=== PATIENT | male | born 1995 | race Caucasian/White ===

== ENCOUNTER → 2020-04-11 16:40 | Outpatient (CLI) | payer OTHER, SELFPAY ==
[2020-04-11 17:01] LABS: Basophils % 0.3 % (0.1-2.0); Eosinophils # 0.1 K/mm3 (0.0-0.4); Eosinophils % 0.8 % (0.1-12.0); Hematocrit 48.8 % (42.0-52.0); Hemoglobin 17.1 g/dL (14.1-18.0); Lymphocytes # 2.3 K/mm3 (0.7-4.5); Lymphocytes % 34.1 % (10-50); Mean Corpuscular Volume 85.7 fl (80-94); Mean Platelet Volume 8.3 fl (7.4-10.4); Monocytes # 0.5 K/mm3 (0.1-1.0); Monocytes % 6.8 % (1.7-9.3); Neutrophils # 3.9 K/mm3 (1.8-7.8); Platelet Count 236 K/mm3 (142-424); Red Blood Count 5.69 M/mm3 (4.60-6.20); Red Cell Distribution Width 13.1 % (11.5-17.5); White Blood Count 6.7 K/mm3 (4.8-10.8)
[2020-04-11 17:27] LABS: Alanine Aminotransferase 36 U/L (12-78); Albumin Level 4.9 g/dl (3.5-5.0); Albumin/Globulin Ratio 1.7 (1.1-1.8); Alkaline Phosphatase 105 U/L (38-126); Anion Gap 10.9 mEq/L (5-15); Aspartate Amino Transferase 38 U/L (17-59); Bilirubin,Total 0.7 mg/dl (0.2-1.3); Blood Urea Nitrogen 8 mg/dl (9-20); Calcium 10.5 mg/dl (8.4-10.2); Carbon Dioxide 30 mmol/L (22.0-30.0); Chloride 100 mmol/L (98-107); Chol/HDL Ratio 2.9 (1-3.5); Cholesterol 214 mg/dl (140-200); Estimated Glomerular Filt Rate 117 ml/min (>60); GFR (African American) 141 ML/MIN (>60); Globulin 2.9 g/dL (1.3-3.2); Glucose 106 mg/dl (74-100); HDL Cholesterol 75 mg/dl (40-60); Potassium 4.9 mmoL/L (3.5-5.1); Sodium 136 mmol/L (136-145); Total Protein,Serum 7.8 g/dl (6.3-8.2); Triglycerides 130 mg/dl (30-150); VLDL Cholesterol 26 mg/dL (0-40)
[2020-04-11 17:39] LABS: Direct LDL Cholesterol 118.63 mg/dL (100-129)
[2020-04-11 17:45] LABS: T4 (Thyroxine) 8.5 ug/dl (5.53-11.0)
[2020-04-11 17:58] LABS: Thyroid Stimulating Hormone 2.24 uIU/mL (0.465-4.68)
[2020-04-17 01:39] LABS: 1,25 Dihydroxy Vitamin D 35 pg/mL (.); 1,25-Dihydroxy, Vitamin D-2 <10 pg/mL (.); 1,25-Dihydroxy, Vitamin D-3 35 pg/mL (.)
== END ==
PROVIDERS: Visit Provider Nurse Practitioner Family
DX: I10 Essential (primary) hypertension (principal)
CPT/HCPCS: 80053; 80061; 82652; 84436; 84443; 85025

== ENCOUNTER → 2020-04-16 08:04 | Outpatient (CLI) | payer OTHER, SELFPAY ==
--- NOTE | 2020-04-16 08:05 | CA_ITS ---
APPROVED REPORT Ergonomist: Syeda Lombardo RVT Study Quality: Excellent Indications: Uncontrolled HTN Risk Factors Hypertension Renal Artery Doppler Origin (R) 203.9/ cm/sec Proximal (R) 197.1/ cm/sec Mid (R) 147.6/ cm/sec Distal (R) 95.5/ cm/sec Renal Aorta Ratio (R) 1.34 Segmental A. (R) 70.4/25.1 cm/sec RI: 0.64 Segmental A. Sup (R) 70.4/25.1 cm/sec Segmental A. Mid (R) 51.5/23.9 cm/sec Segmental A. Inf (R) 42.7/20.1 cm/sec Origin (L) 121.7/ cm/sec Proximal (L) 130.2/ cm/sec Mid (L) 134.7/ cm/sec Distal (L) 102.4/ cm/sec Renal Aorta Ratio (L) 0.88 Segmental A. (L) 75.5/23.6 cm/sec RI: 0.68 Segmental A. Sup (L) 75.5/23.6 cm/sec Segmental A. Mid (L) 50.0/32.6 cm/sec Segmental A. Inf (L) 31.0/10.7 cm/sec Renal Measurements Kidney Size (R) 12.0x7.0 cm Cortical Thickness (R) 1.1 cm Kidney Size (L) 12.2x7.5 cm Cortical Thickness (L) 1.3 cm Findings Study suggests less than 60% stenosis of the right renal artery. Study suggests no evidence of stenosis of the left renal artery. Conclusion Study suggests less than 60% stenosis of the right renal artery. Study suggests no evidence of stenosis of the left renal artery. Electronically signed by : Ernie Rae MD 04/17/2020 15:04:18
--- NOTE | 2020-04-16 08:05 | CA_ITS ---
APPROVED REPORT Exam: Exercise Treadmill Technologist: Saray Lloyd Ht: 5 ft 9 in Wt: 223 lbs BSA: 2.16 m2 HR: 83 bpm BP: 138/86 mmHg Indications: Shortness of Breath, Hypertension Medical History Medications: Lisinopril,,,,, Stress Test Details Test: Terrell HR Resting HR: 92 bpm Max Heart Rate (APMHR): 194 bpm Max HR Achieved: 167 bpm Target HR (85% APMHR): 164 bpm % of APMHR: 86 Recovery HR: 100 bpm BP Resting BP: 138.0/86.0 mmHg Max BP: 196.0/98.0 mmHg Recovery BP: 150.0/96.0 mmHg ECG Clinical Exercise duration: 07:03 min Highest Stage Achieved: Exercise capacity: 10.1 METs Stress ECG Conclusion Resting ECG: Normal sinus rhythm, right axis deviation. Patient exercised 7:03 on Terrell Protocol. Test stopped due to shortness of air, fatigue. Symptoms: No chest pain. Arrhythmias/Ectopy: None ST-T Changes: Normal ST response to exercise. Conclusion: Normal GXT. Poor exercise tolerance for age. GXT only (no imaging) Electronically signed by : Sg Farr, 04/17/2020 10:48:30
--- NOTE | 2020-04-16 08:05 | CA_ITS ---
APPROVED REPORT EXAM: Comprehensive 2D, Doppler, and color-flow Echocardiogram Lactation Consultant: Syeda Lombardo RVT Ht: 5 ft 9 in Wt: 223lbs BSA: 2.16 BP: 149/96 mmHg Indications: SOA,HTN,PALPS,CROSS 2D Dimensions LVOT 2.15 cm (M/F) 1.5-2.5 M-Mode Dimensions RVDd 3.08 cm (0.9-2.6) LVDd 4.62 cm (3.5-5.7) LVDs 2.75 cm (3.5-5.7) IVSd 1.14 cm (0.6-1.1) PWd 0.84 cm (0.6-1.1) EF (Teich) 71.20% FS 40.50% EDV (Teich) 98.30 mL ESV (Teich) 28.30 mL LV Diastology E/A Ratio 1.32 Mitral Valve MV A Velocity 47.00 (40-130 cm/s) Left Ventricle Left atrium is normal size, left ventricle is normal size, there is no concentric left ventricular hypertrophy, visually estimated ejection fraction 55% with no regional wall motion abnormality, diastolic parameters are within normal range. Right Ventricle Right atrium and right ventricle are normal size and contractility. Aortic Valve Aortic valve is normal, there is no aortic stenosis aortic insufficiency. Mitral Valve Valve is grossly normal, there is trace mitral regurgitation. Tricuspid Valve Tricuspid valve is grossly normal. There is no tricuspid regurgitation. Pulmonic Valve Pulmonic valve is poorly visualized. Great Vessels Aortic root is normal size. Pericardium No significant pericardial effusion noted. Conclusion 1. Normal left ventricular size, preserved left ventricular systolic function, visually estimated ejection fraction 55% with no regional wall motion abnormality, diastolic parameters are within normal range. 2. Trace mitral and tricuspid regurgitation. 3. No significant pericardial effusion noted. Electronically signed by : Sg Farr, 04/17/2020 13:03:30
== END ==
PROVIDERS: PCP Nurse Practitioner Family; Visit Provider Urology
DX: R00.2 Palpitations (principal); R06.00 Dyspnea, unspecified; I10 Essential (primary) hypertension
CPT/HCPCS: 93017; 93306; 93976

== ENCOUNTER 2021-01-02 09:17 | Emergency (ER) | payer OTHER, SELFPAY ==
--- NOTE | 2021-01-02 09:16 | ECG_ITS ---
APPROVED REPORT Exam: Resting ECG HR:68 bpm ECG Measurements Heart Rate 68 AXES WV 146 P 29 QRSd 100 QRS 47 QT 366 T 23 QTc 389 Conclusion Normal sinus rhythm Possible Left atrial enlargement Borderline ECG Electronically signed by : Sarbjit Garcia, 01/03/2021 16:34:06
[2021-01-02 09:17] VITALS: BP 129/86; PULSE 86; RESP 24; TEMP 36.6; O2SAT 97; BMI 34.0
--- NOTE | 2021-01-02 09:22 | HMH.EDGENADL ---
ED Disposition Clinical Impression: Esophagitis, Odynophagia Disposition: Home, Self-Care Condition on Discharge: Good Instructions: DI for Gastroesophageal Reflux Disease (GERD), DI for Atypical Chest Pain, DI for Esophagitis Additional Instructions: Protonix as prescribed. Aloe up with your primary care provider, call for appointment. Additional instructions for CHEST PAIN: See your physician as soon as possible for further evaluation. Return immediately if worsening chest pain, vomiting, shortness of breath, fever, coughing of blood. Prescriptions: Pantoprazole Sodium [Protonix 40mg tablet] 40 mg PO DAILY #15 tab Transmission Status: Received by [facility] Referrals: Astrid Pro APRN [Primary Care Provider] - - Critical Care Critical Care Time: No Attestation: On , the high probability of a clinically significant, sudden or life threatening deterioration of the following system(s) required my full and direct attention, intervention and personal management. The time I documented below is in addition to time spent performing reported procedures but includes the following listed in this critical care notation. Medical Decision Making - Carter Inquiry Pt receiving controlled substance: No Vital Signs: 01/02/21 09:17 01/02/21 09:30 01/02/21 10:50 Temperature 97.8 F 98.4 F Temperature Source Oral Oral Pulse Rate 87 Pulse Rate [Left Radial] 86 80 Respiratory Rate 24 18 16 Blood Pressure 112/65 Blood Pressure [Right Arm] 129/86 115/78 Blood Pressure Mean [Right Arm] 100 90 Blood Pressure Source [Right Arm] Automatic Cuff Blood Pressure Position [Right Arm] Sitting 02 Sat by Pulse Oximetry 97 98 Oxygen Delivery Method Room Air Room Air - Lab Data Lab Results 01/02/21 09:23: Troponin I < 0.01 01/02/21 09:23: WBC 6.9, RBC 5.00, Hgb 14.9, Hct 43.5, MCV 86.9, MCH 29.7, MCHC 34.2, RDW 13.2, Plt Count 228, MPV 7.9, Neut % (Auto) 55.7, Lymph % (Auto) 36.2, Sargent % (Auto) 7.1, Eos % (Auto) 0.6, Baso % (Auto) 0.3, Neut # (Auto) 3.8, Lymph # (Auto) 2.5, Sargent # (Auto) 0.5, Eos # (Auto) 0.0, Baso # (Auto) 0.0 01/02/21 09:23: Sodium 140, Potassium 3.7, Chloride 106, Carbon Dioxide 29, Anion Gap 8.7, BUN 12, Creatinine 0.80, Estimated Creat Clear 206, Estimated GFR 117, Est GFR ( Amer) 141, Glucose 74, Calcium 9.4 Result diagrams: 01/02/21 09:23 01/02/21 09:23 Orders (Tests/Meds): ED MEDICATIONS Discontinued Medications Generic Name Dose Route Start Last Admin Trade Name Freq PRN Reason Stop Dose Admin Belladonna Alkaloids 60 ml 01/02/21 09:26 01/02/21 09:36 Gi Cocktail 60ml Udc PO 01/02/21 09:27 60 ml ONCE ONE Administration Famotidine 20 mg 01/02/21 09:26 01/02/21 09:36 Famotidine 20mg/2ml Vial IV 01/02/21 09:27 20 mg ONCE ONE Administration Metoclopramide HCl 10 mg 01/02/21 09:26 01/02/21 09:36 Metoclopramide Hcl 10mg/2ml Vial IVP 01/02/21 09:27 10 mg ONCE ONE Administration Sodium Chloride 8 ml 01/02/21 09:26 01/02/21 09:37 Sodium Chloride 0.9% 10ml Vial IV 02/01/21 09:25 8 ml NEEDED PRN Administration dilute pepcid - Radiology Data #1 Image(s): Chest Image Reviewed: Yes I reviewed the patient's radiology image Preliminary Findings: Normal/NAD - ECG Data Tracing #1 EKG interpreted by Jose Barker MD: Rhythm: sinus Rate: 68 [place]: normal Ectopy: none Conduction: normal ST Segment Changes: none T Wave Changes: none Q Waves: none No evidence of acute ischemia or injury - STEPHANIE Score for Non-Stemi Age of Patient: <30 years old Heart Rate: 70-89 bpm Systolic Blood Pressure: 120-139 mmhg Serum Creatinine: 0.80-1.19 mg/dl CHF [place] Class: I-No CHF Other Risk Factors: None Non-Stemi Risk Score: 50 General Adult HPI - General Stated complaint: chest pain Time Seen by Provider: 01/02/21 09:46 - History of Present Illness HPI narrative: 3-day history o
--- NOTE | 2021-01-02 09:25 | XR_ITS ---
PROCEDURE: XR CHEST 2V CLINICAL HISTORY: chest pain COMPARISON: No exams were available for comparison FINDINGS: The cardiomediastinal silhouette and pulmonary vascularity are within normal limits. The lungs are clear without infiltrates, suspicious nodules, or pleural effusions. No acute bony abnormalities. IMPRESSION: No acute findings. Dictated by: Ernie Rae MD 01/02/2021 10:47 Ernie Rae MD in OV 01/02/2021 10:47
[2021-01-02 09:30] VITALS: BP 115/78; PULSE 80; RESP 18; O2SAT 98
[2021-01-02 09:52] LABS: Basophils % 0.3 % (0.1-2.0); Eosinophils % 0.6 % (0.1-12.0); Hematocrit 43.5 % (42.0-52.0); Hemoglobin 14.9 g/dL (14.1-18.0); Lymphocytes # 2.5 K/mm3 (0.7-4.5); Lymphocytes % 36.2 % (10-50); Mean Corpuscular HGB Conc 34.2 g/dL (31.8-35.4); Mean Corpuscular Hemoglobin 29.7 pg (27.0-31.2); Mean Corpuscular Volume 86.9 fl (80-94); Mean Platelet Volume 7.9 fl (7.4-10.4); Monocytes # 0.5 K/mm3 (0.1-1.0); Monocytes % 7.1 % (1.7-9.3); Neutrophils # 3.8 K/mm3 (1.8-7.8); Neutrophils % 55.7 % (37.0-80.0); Platelet Count 228 K/mm3 (142-424); Red Cell Distribution Width 13.2 % (11.5-17.5); White Blood Count 6.9 K/mm3 (4.8-10.8)
[2021-01-02 10:03] LABS: Chloride 106 mmol/L (98-107); Potassium 3.7 mmoL/L (3.5-5.1); Sodium 140 mmol/L (136-145)
[2021-01-02 10:06] LABS: Anion Gap 8.7 mEq/L (5-15); Blood Urea Nitrogen 12 mg/dl (9-20); Calcium 9.4 mg/dl (8.4-10.2); Carbon Dioxide 29 mmol/L (22.0-30.0); Creatinine Clearance Estimated 206 mL/min (50-200); Estimated Glomerular Filt Rate 117 ml/min (>60); GFR (African American) 141 ML/MIN (>60); Glucose 74 mg/dl (74-100)
[2021-01-02 10:21] LABS: Troponin I < 0.01 ng/ml (0.00-0.034)
[2021-01-02 10:50] VITALS: BP 112/65; PULSE 87; RESP 16; TEMP 36.9; O2SAT 98
== END 2021-01-02 10:52 | disposition home or self-care (01) ==
PROVIDERS: Emergency Provider Emergency Medicine; PCP Nurse Practitioner Family
DX: K21.00 Gastro-esophageal reflux disease with esophagitis, without bleeding (principal); R13.10 Dysphagia, unspecified; I10 Essential (primary) hypertension; K21.9 Gastro-esophageal reflux disease without esophagitis
CPT/HCPCS: 71046; 80048; 84484; 85025; 93005; 96374; 96375; 99283

== ENCOUNTER → 2021-01-12 10:28 | Outpatient (POV) | payer OTHER, SELFPAY | PROVIDERS: Visit Provider Nurse Practitioner Family | DX: Z00.00 Encounter for general adult medical examination without abnormal findings (principal) ==

== ENCOUNTER → 2021-01-24 11:36 | Outpatient (CLI) | payer OTHER, SELFPAY ==
[2021-01-24 14:08] LABS: Coronavirus 19 IgG Antibody Negative (Negative); Coronavirus 19 IgM Antibody Negative (Negative)
== END ==
PROVIDERS: Visit Provider Internal Medicine Gastroenterology
DX: Z01.818 Encounter for other preprocedural examination (principal); Z20.822 Contact with and (suspected) exposure to COVID-19; Z13.810 Encounter for screening for upper gastrointestinal disorder
CPT/HCPCS: 36415; 86328

== ENCOUNTER 2021-01-26 10:28 | Day surgery (SDC) | payer BC, OTHER, SELFPAY ==
[2021-01-20 13:20] VITALS: BMI 34.8
[2021-01-26 10:38] VITALS: BP 124/84; PULSE 89; RESP 20; TEMP 36.8; O2SAT 99
[2021-01-26 11:12] VITALS: O2SAT 99
--- NOTE | 2021-01-26 11:22 | HMH.ANESCL ---
[facility] Anesthesia Checklist - Patient Identification Patient Identification: Arm Band - Structural Data Admitted From: Home Planned Operative Procedure/s: egd Consent for Planned Operative Procedure(s) Verified: Yes Verified Documents: Surgical Consent, History and Physical - NPO Status Verified Time NPO: 00:00 - Additional verifications Anesthesia Reactions: No - Airway Assessment C-Spine Mobility Assessed: Yes (mp2) TMJ Mobility Assessed: Yes Dentition: Good Dentition - Neurological Assessment Level of Consciousness: Awake, Alert - Anesthesia Plan Anesthesia Risk discussed: Yes Anesthesia Plan: Verified ASA Class: II Anesthesia Type: MAC [facility] History I have reviewed the patient's past medical history: Yes Medical History: Reports:: Hypertension Denies:: Cancer, Diabetes Mellitus Type 1, Diabetes Mellitus Type 2, Internal Pacemaker, MRSA, Seizures *Have you ever received a pneumonia vaccine?: No *Have you received a flu vaccine this season?: No Anesthesia experience/problems:: nac Laterality Cases: Bilateral: Tonsillectomy Other Surgeries: Yes: Other. No: Pacemaker Amputation: No Fractures: No - *Social History Last grade of school completed: Some college Smoking Status: Never smoker Alcohol Intake: never Alcohol Intake Frequency:: other Substance Use Type: denies use *Occupational Status:: employed Housing: house Household Members: family *Travel in the last 8 weeks: None Family Hx:: Diabetes, Hypertension
--- NOTE | 2021-01-26 11:28 | HMH.PROC ---
[facility] Procedure Note Procedure Note:: Upper Endoscopy Procedure Report: Esophagogastroduodenoscopy with cold biopsies Endoscopost: Jeff Johnson II, MD Referring Physician: JOHN Maya Date of Procedure: January 26, 2021 Equipment: Olympus GIF 190 standard upper endoscope Sedation: MAC sedation Indications: Mr. Travis is a 26-year-old gentleman with noncardiac chest pain/esophageal chest pain. He has had an extensive cardiac evaluation which has been unremarkable. He was getting midsternal chest pain radiating into the back that occurred after eating or drinking. He did go to the emergency department last month and received a GI cocktail which relieved his discomfort. He does take Mylanta occasionally. He does report some epigastric abdominal discomfort/dyspepsia and persistent postprandial belching. He also has bloating and some early satiety. He does report regular bowel function but has had incomplete bowel evacuation/incomplete defecation. The patient was taking both pantoprazole and Nexium. His grandfather had rectal cancer diagnosed at the age of 54. Procedure: Prior to the procedure, a history and physical exam was performed, and patient's medications and allergies were reviewed. The risks, benefits and alternatives of the sedation and procedure were discussed with the patient. All questions were answered and informed consent was obtained. The patient was brought to the procedure room. Patient identification and proposed procedure were verified by the physician and the nurse. The patient was placed in a left lateral decubitus position and the scope was passed under direct vision. Throughout the procedure, the patient's blood pressure, pulse, and oxygen saturations were monitored continuously. The upper GI endoscopy was accomplished without difficulty. The patient tolerated the procedure well. Findings: The scope was passed directly into the upper esophagus and advanced to the third portion of the duodenum. The post bulbar duodenum and duodenal bulb were normal with normal mucosa and conniventes. The scope was withdrawn through a normal duodenal bulb and pylorus into the stomach. There was evidence of linear reactive gastropathy with bile reflux. The remainder of the antrum, body and fundus of the stomach were grossly normal. Upon retroflexion there was no hiatal hernia. 2 biopsies were taken in the antrum and along the lesser curvature for histology to rule out gastritis and/or H pylori. The scope was then withdrawn into the esophagus. There was a serrated Z-line. Biopsies were taken at the squamocolumnar junction. There was no evidence of reflux esophagitis or Schatzki's ring. There were tertiary contractions and evidence of moderate esophageal dysmotility. The remainder of the esophageal mucosa was normal. Impression: 1. Nonerosive GERD with moderate esophageal dysmotility 2. Linear reactive gastropathy with bile reflux Plan: The patient does have functional dyspepsia and functional reflux with esophageal dyskinesia/dysmotility. I will follow-up the biopsies. We will discuss additional treatment options which should include a fiber bowel regimen on a daily maintenance basis and promotility therapy. We will discuss dietary measures as well.
[2021-01-26 11:30] VITALS: BP 109/76; PULSE 79; RESP 16; TEMP 36.4; O2SAT 95
[2021-01-26 11:40] VITALS: BP 108/70; PULSE 72; RESP 18; O2SAT 96
[2021-01-26 11:50] VITALS: BP 110/69; PULSE 72; RESP 18; O2SAT 98
== END 2021-01-26 12:00 | disposition home or self-care (01) ==
LOC: OUTP 10:30
PROVIDERS: PCP Nurse Practitioner Family; Visit Provider Internal Medicine Gastroenterology
PROC: 0DJ08ZZ Inspection of Upper Intestinal Tract, Via Natural or Artificial Opening Endoscopic (ICD-10-PCS; CPT 43235; principal; 2021-01-26 12:00)
DX: K21.9 Gastro-esophageal reflux disease without esophagitis (principal); K22.4 Dyskinesia of esophagus; K31.9 Disease of stomach and duodenum, unspecified; I10 Essential (primary) hypertension; Z83.3 Family history of diabetes mellitus; Z82.49 Family history of ischemic heart disease and other diseases of the circulatory system; Z79.899 Other long term (current) drug therapy; Z88.1 Allergy status to other antibiotic agents
CPT/HCPCS: 43239

== ENCOUNTER 2021-05-09 14:07 | Emergency (ER) | payer BC, OTHER, SELFPAY ==
[2021-05-09 14:20] VITALS: BP 156/87; PULSE 89; RESP 16; TEMP 37.1; O2SAT 100; BMI 34.9
--- NOTE | 2021-05-09 14:32 | HMH.EDUTC ---
[facility] [place] Disposition Clinical Impression: Common cold Disposition: Home, Self-Care Condition on Discharge: Good Instructions: How to Avoid a Cold or Flu, Common Cold (Alternative Therapy), Common Cold Additional Instructions: No sign of a bacterial infection. Likely viral. Viruses can take 7-14 days to run their course. Nasal saline and bulb syringe or nose Lisha to remove nasal drainage to help with nasal congestion. Hard to eat, drink, sleep with nasal congestion so important to keep this cleaned out. Monitor temp. Tylenol or Motrin as needed for pain or fever Encourage fluids, water, Gatorade, Powerade, Pedialyte if /toddler/child Warm salt water gargles Warm fluids Sore throat lozenges Sleep elevated Humidifier/vaporizer Follow-up immediately for new or worsening symptoms or no noticeable improvement over the next 48-72 hours. Prescriptions: Brompheniramine/Pseudoephed/Dm [Bromfed Dm Cough Syrup] 5 ml PO Q46H PRN 14 Days #100 ml PRN Reason: Cough Transmission Status: Pending to [facility] Referrals: Astrid Pro APRN [Primary Care Provider] - Time of Disposition: 14:46 Medical Decision Making - Carter Inquiry Pt receiving controlled substance: No Vital Signs: 05/09/21 14:20 Temperature 98.7 F Temperature Source Oral Pulse Rate [Left] 89 Respiratory Rate 16 Blood Pressure [Right Arm] 156/87 H Blood Pressure Mean [Right Arm] 110 02 Sat by Pulse Oximetry 100 [facility] [place] [facility] HPI - General Chief complaint: Urgent Treatment Center Stated complaint: sinus drainage Time Seen by Provider: 05/09/21 14:41 Mode of Arrival: Ambulatory Source of Information: Patient Limitations: No Limitations Description of Symptoms (Recalled from Triage Doc. by RN): pt states he gets a sinus infection this time of year. pt denies congestion or colored mucous. only complaint is a cough. HEENT Symptoms (Recalled from RN notes): No Resp Symptoms (Recalled from RN notes): Yes (cough) Skin Symptoms (Recalled from RN notes): No MS Symptoms (Recalled from RN notes): No Functional Status (Recalled from RN notes): na - History of Present Illness Provider Complaint: 26 yr old male presents for clear drainage,cough and stuffy nose. pt states he gets a sinus infection this time of year. - Related Data Home Medications Medication Instructions Recorded Confirmed lisinopriL [Prinivil 20mg Tablet] 20 mg PO BID 01/02/21 03/26/21 esomeprazole magnesium 20 mg 20 mg PO BID cap 03/26/21 03/26/21 capsule,delayed release metoclopramide HCl 10 mg tablet 10 mg PO QACHS 03/26/21 03/26/21 Previous Rx's Medication Instructions Recorded Brompheniramine/Pseudoephed/Dm 5 ml PO Q46H PRN 14 Days #100 ml 05/09/21 [Bromfed Dm Cough Syrup] Allergies Allergy/AdvReac Type Severity Reaction Status Date / Time azithromycin [AZITHROMYCIN] Allergy Mild Verified 05/09/21 14:23 - Worker's Comp Is this a Worker's Comp case?: No [facility] History - Hepatitis A Screen Drug use history?: No High risk sexual behaviors?: No History of sexually transmitted infection?: No Currently employed?: No Childcare worker?: No Do you have indoor plumbing?: Yes Do you have electricity?: Yes Attestation statement:: This patient has been screened for Hepatitis A risk factors. I have reviewed the patient's past medical history: Yes Medical History: Reports:: Hypertension Denies:: Cancer, Diabetes Mellitus Type 1, Diabetes Mellitus Type 2, Internal Pacemaker, MRSA, Seizures Laterality Cases: Bilateral: Tonsillectomy Other Surgeries: Yes: Other. No: Pacemaker Amputation: No Fractures: No Comment: [place]ont teeth - Social History Smoking Status: Never smoker Alcohol Intake: never Alcohol Intake Frequency:: other Substance Use Type: denies use Occupational Status: employed Housing: house Household Members: family Family Hx:: Diabetes, Hypertension Comment: Mother/Father-HTN ROS Obtained: Yes Systems reviewed as appropriate & no
[2021-05-09 14:47] VITALS: BP 150/88; PULSE 85; RESP 16; TEMP 36.6
== END 2021-05-09 14:49 | disposition home or self-care (01) ==
PROVIDERS: Emergency Provider Nurse Practitioner Family; PCP Nurse Practitioner Family
DX: J00 Acute nasopharyngitis [common cold] (principal); I10 Essential (primary) hypertension
CPT/HCPCS: 99202; G0463

== ENCOUNTER → 2021-05-18 15:27 | Outpatient (CLI) | payer BC, OTHER, SELFPAY | PROVIDERS: PCP Nurse Practitioner Family; Visit Provider Nurse Practitioner Family | DX: Z20.822 Contact with and (suspected) exposure to COVID-19 (principal) | CPT/HCPCS: U0003 ==

== ENCOUNTER → 2021-11-23 13:07 | Outpatient (CLI) | payer BC, OTHER, SELFPAY | PROVIDERS: Visit Provider Nurse Practitioner | DX: Z20.822 Contact with and (suspected) exposure to COVID-19 (principal) | CPT/HCPCS: C9803; U0003; U0005 ==

== ENCOUNTER 2021-11-24 09:38 | Emergency (ER) | payer BC, OTHER, SELFPAY ==
[2021-11-24 10:15] VITALS: BP 140/90; PULSE 81; RESP 18; TEMP 36.7; O2SAT 99; BMI 31.6
--- NOTE | 2021-11-24 10:50 | HMH.EDUTC ---
[facility] [place] Disposition Clinical Impression: Sinusitis Qualifiers: Sinusitis location: unspecified location Chronicity: unspecified Qualified Code(s): J32.9 - Chronic sinusitis, unspecified Disposition: Home, Self-Care Condition on Discharge: Good Instructions: Sinusitis, DI for Sinusitis Additional Instructions: *Monitor Temp, Over the counter Motrin or Tylenol as directed/as needed Tylenol every 4 hours and Motrin every 6 hours (as long as your family doctor has told you that you can take it) for fever or pain. and straight to ER if unable to lower temp less than 101.0 after medication given *Warm salt water gargles may help to soothe the throat *Throat Lozenges *Warm fluids like tea with honey may help to soothe the throat *Sleep elevated *Humidifier/Vaporizer Take medication as prescribed Follow up IMMEDIATELY for new or worsening symptoms or no Noticeable improvement over the next 48-72 hours. 911 for difficulty breathing or swallowing Prescriptions: Amoxicillin/Potassium Clav [Augmentin 875-125 Tablet] 1 tab PO Q12H 7 Days #14 tab [facility]: [facility] predniSONE [Prednisone 20mg Tab] 20 mg PO BID 5 Days #10 tab Transmission Status: Pending to [facility] Referrals: Astrid Pro APRN [Primary Care Provider] - As needed Forms: Work/School Release Time of Disposition: 10:58 Medical Decision Making - Carter Inquiry Pt receiving controlled substance: No Carter was queried for this patient: No Vital Signs: 11/24/21 10:15 Temperature 98.1 F Temperature Source Oral Pulse Rate [Right Brachial] 81 Respiratory Rate 18 Blood Pressure [Right Arm] 140/90 Blood Pressure Mean [Right Arm] 106 Blood Pressure Source [Right Arm] Automatic Cuff Blood Pressure Position [Right Arm] Sitting 02 Sat by Pulse Oximetry 99 Oxygen Delivery Method Room Air [facility] [place] HPI - General Stated complaint: covid exposed, cough, h/a, no taste Time Seen by Provider: 11/24/21 10:50 Mode of Arrival: Ambulatory Source of Information: Patient Limitations: No Limitations Description of Symptoms (Recalled from Triage Doc. by RN): PATIENT C/O COUGH, HEADACHE, SNEEZING, AND LOSS OF TASTE X 1 WEEK HEENT Symptoms (Recalled from RN notes): Yes Resp Symptoms (Recalled from RN notes): Yes Skin Symptoms (Recalled from RN notes): No MS Symptoms (Recalled from RN notes): No Functional Status (Recalled from RN notes): wnl - History of Present Illness Provider Complaint: Patient state that he thinks he has a sinus infection State that he has been having sinus pain and pressure with drianage in the back of his throat and nothing tastes right States today he was still having pressure behind his eyes States that he was tested yesterday for COVID and it was negative - Related Data Home Medications Medication Instructions Recorded Confirmed lisinopriL [Lisinopril] 20 mg PO DAILY 11/24/21 11/24/21 Previous Rx's Medication Instructions Recorded Amoxicillin/Potassium Clav 1 tab PO Q12H 7 Days #14 tab 11/24/21 [Augmentin 875-125 Tablet] predniSONE [Prednisone 20mg 20 mg PO BID 5 Days #10 tab 11/24/21 Tab] Allergies Allergy/AdvReac Type Severity Reaction Status Date / Time azithromycin [AZITHROMYCIN] Allergy Mild Verified 10/13/21 15:50 - Worker's Comp Is this a Worker's Comp case?: No [facility] History - Hepatitis A Screen Drug use history?: No High risk sexual behaviors?: No History of sexually transmitted infection?: No Currently employed?: No Childcare worker?: No Do you have indoor plumbing?: Yes Do you have electricity?: Yes Attestation statement:: This patient has been screened for Hepatitis A risk factors. I have reviewed the patient's past medical history: Yes Medical History: Reports:: Hypertension Denies:: Cancer, Diabetes Mellitus Type 1, Diabetes Mellitus Type 2, Internal Pacemaker, MRSA, Seizures Laterality Cases: Bilateral: Tonsillectomy Other [place]
[2021-11-24 11:30] VITALS: BP 140/90; PULSE 81; RESP 18; TEMP 36.7; O2SAT 99
== END 2021-11-24 11:47 | disposition home or self-care (01) ==
PROVIDERS: Emergency Provider Nurse Practitioner; PCP Nurse Practitioner Family
DX: J32.9 Chronic sinusitis, unspecified (principal); Z20.822 Contact with and (suspected) exposure to COVID-19; I10 Essential (primary) hypertension
CPT/HCPCS: 99202; G0463

== ENCOUNTER 2022-01-09 10:45 | Emergency (ER) | payer BC, OTHER, SELFPAY ==
[2022-01-09 11:05] VITALS: BP 123/74; PULSE 70; RESP 18; TEMP 37.1; O2SAT 98; BMI 34.4
[2022-01-09 11:32] VITALS: BP 123/74; PULSE 70; RESP 18; TEMP 37.1; O2SAT 98
--- NOTE | 2022-01-09 11:34 | HMH.EDUTC ---
[facility] [place] Disposition Clinical Impression: Sinusitis Qualifiers: Sinusitis location: unspecified location Chronicity: unspecified Qualified Code(s): J32.9 - Chronic sinusitis, unspecified Disposition: Home, Self-Care Condition on Discharge: Good Instructions: Sinusitis, DI for Sinusitis Additional Instructions: *Monitor Temp, Over the counter Motrin or Tylenol as directed/as needed Tylenol every 4 hours and Motrin every 6 hours (as long as your family doctor has told you that you can take it) for fever or pain. and straight to ER if unable to lower temp less than 101.0 after medication given *Warm salt water gargles may help to soothe the throat *Throat Lozenges *Warm fluids like tea with honey may help to soothe the throat *Sleep elevated *Humidifier/Vaporizer *Flonase 2 sprays in each nostril daily but be aware that it may take 2-3 days before you notice improvement Follow up IMMEDIATELY for new or worsening symptoms or no Noticeable improvement over the next 48-72 hours. 911 for difficulty breathing or swallowing Prescriptions: Amoxicillin/Potassium Clav [Amox-Clav 875-125 mg Tablet] 1 tab PO BID #14 tab [facility]: [facility] Fluticasone Propionate [Flonase 50mcg nasal spray 16gm] 1 spr NS DAILY #1 each Transmission Status: Pending to [facility] methylPREDNISolone [Medrol 4mg tab] 4 mg PO DIRECTED #21 tab [facility] Referrals: Astrid Pro APRN [Primary Care Provider] - As needed Time of Disposition: 11:44 Medical Decision Making - Carter Inquiry Pt receiving controlled substance: No Carter was queried for this patient: No Vital Signs: 01/09/22 11:05 01/09/22 11:32 Temperature 98.8 F 98.8 F Temperature Source Oral Pulse Rate 70 Pulse Rate [Right Brachial] 70 Respiratory Rate 18 18 Blood Pressure 123/74 Blood Pressure [Right Arm] 123/74 Blood Pressure Mean [Right Arm] 90 Blood Pressure Source [Right Arm] Automatic Cuff Blood Pressure Position [Right Arm] Sitting 02 Sat by Pulse Oximetry 98 Oxygen Delivery Method Room Air [facility] [place] HPI - General Stated complaint: congestion, runny nose Time Seen by Provider: 01/09/22 11:35 Mode of Arrival: Ambulatory Source of Information: Patient Limitations: No Limitations Description of Symptoms (Recalled from Triage Doc. by RN): PATIENT C/O SINUS PRESSURE/CONGESTION X 3 DAYS HEENT Symptoms (Recalled from RN notes): Yes Resp Symptoms (Recalled from RN notes): No Skin Symptoms (Recalled from RN notes): No MS Symptoms (Recalled from RN notes): No Functional Status (Recalled from RN notes): WNL - History of Present Illness Provider Complaint: Patient state that he has been having sinus pain and pressure for over a week that has continued to get worse over the last 3 days States that he is having pressure behind his eyes and having thick yellowish green mucous like he has had in the past with sinus infection - Related Data Home Medications Medication Instructions Recorded Confirmed lisinopriL [Lisinopril] 20 mg PO DAILY 11/24/21 01/09/22 Previous Rx's Medication Instructions Recorded Amoxicillin/Potassium Clav 1 tab PO BID #14 tab 01/09/22 [Amox-Clav 875-125 mg Tablet] Fluticasone Propionate [Flonase 1 spr NS DAILY #1 each 01/09/22 50mcg nasal spray 16gm] methylPREDNISolone [Medrol 4mg 4 mg PO DIRECTED #21 tab 01/09/22 tab] Allergies Allergy/AdvReac Type Severity Reaction Status Date / Time azithromycin [AZITHROMYCIN] Allergy Mild Verified 10/13/21 15:50 - Worker's Comp Is this a Worker's Comp case?: No H History - Hepatitis A Screen Drug use history?: No High risk sexual behaviors?: No History of sexually transmitted infection?: No Currently employed?: No Childcare worker?: No Do you have indoor plumbing?: Yes Do you have electricity?: Yes Attestation statement:: This patient has been screened for Hepati
== END 2022-01-09 11:50 | disposition home or self-care (01) ==
PROVIDERS: Emergency Provider Nurse Practitioner; PCP Nurse Practitioner Family
DX: J32.9 Chronic sinusitis, unspecified (principal); I10 Essential (primary) hypertension
CPT/HCPCS: 99212; G0463

== ENCOUNTER 2022-03-22 13:18 | Emergency (ER) | payer BC, OTHER, SELFPAY ==
[2022-03-22 13:33] VITALS: BP 129/86; PULSE 92; RESP 19; TEMP 36.6; O2SAT 100; BMI 35.4
--- NOTE | 2022-03-22 13:33 | HMH.EDUTC ---
[facility] [place] Disposition Clinical Impression: Gastroparesis Sinusitis Qualifiers: Sinusitis location: unspecified location Chronicity: acute Recurrence: non-recurrent Qualified Code(s): J01.90 - Acute sinusitis, unspecified Acid reflux Qualifiers: Esophagitis presence: esophagitis presence not specified Qualified Code(s): K21.9 - Gastro-esophageal reflux disease without esophagitis Disposition: Home, Self-Care Condition on Discharge: Good Instructions: DI for Sinusitis, DI for Gastroparesis Additional Instructions: Drink plenty of fluids. Take tylenol or ibuprofen for pain or fever. Take the medications as directed. Follow up with your regular doctor. GO TO THE ER FOR ANY WORSENING SYMPTOMS Prescriptions: Ondansetron [Zofran 4mg ODT] 4 mg PO Q8HP PRN #20 tab PRN Reason: Nausea [facility] Amoxicillin [Amoxicillin 500mg Tab] 500 mg PO TID 10 Days #30 tab Transmission Status: [facility] predniSONE [Prednisone 20mg Tab] 20 mg PO BID 5 Days #10 tab Transmission Status: [facility] Metoclopramide HCl [Reglan 10mg Tab] 10 mg PO TIDP PRN #30 tab PRN Reason: Dyspepsia Transmission Status: Received by [facility] Referrals: Astrid Pro APRN [Primary Care Provider] - Time of Disposition: 14:39 Medical Decision Making - Medical Records Medical records reviewed: No: I reviewed the patient's medical records. - Carter Inquiry Pt receiving controlled substance: No Vital Signs: 03/22/22 13:33 03/22/22 14:45 Temperature 97.8 F 97.8 F Temperature Source Oral Pulse Rate 92 H Pulse Rate [Left Radial] 92 H Respiratory Rate 19 19 Blood Pressure 129/86 Blood Pressure [Right Arm] 129/86 Blood Pressure Mean [Right Arm] 100 02 Sat by Pulse Oximetry 100 [facility] [place] HPI - General Stated complaint: congestion, nausea/vomiting, acid reflux Time Seen by Provider: 03/22/22 13:35 - History of Present Illness Provider Complaint: He has a long history of gi issues. He takes reglan for gastropariesis but he is out. He request a refill until he can see his pcp again. He also c/o sinus congestion and drainage. - Related Data Previous Rx's Medication Instructions Recorded Fluticasone Propionate [Flonase 1 spr NS DAILY #1 each 01/09/22 50mcg nasal spray 16gm] lisinopril 20 mg tablet 20 mg PO BID #180 tab 01/18/22 Amoxicillin [Amoxicillin 500mg Tab] 500 mg PO TID 10 Days #30 tab 03/22/22 Metoclopramide HCl [Reglan 10mg 10 mg PO TIDP PRN #30 tab 03/22/22 Tab] Ondansetron [Zofran 4mg ODT] 4 mg PO Q8HP PRN #20 tab 03/22/22 predniSONE [Prednisone 20mg 20 mg PO BID 5 Days #10 tab 03/22/22 Tab] Allergies Allergy/AdvReac Type Severity Reaction Status Date / Time azithromycin [AZITHROMYCIN] Allergy Mild Verified 03/22/22 13:37 [facility] History - Hepatitis A Screen Attestation statement:: This patient has been screened for Hepatitis A risk factors. I have reviewed the patient's past medical history: Yes Medical History: Reports:: Hypertension Denies:: Cancer, Diabetes Mellitus Type 1, Diabetes Mellitus Type 2, Internal Pacemaker, MRSA, Seizures Laterality Cases: Bilateral: Tonsillectomy Other Surgeries: Yes: No Previous Surgery, Other. No: Pacemaker Amputation: No Fractures: No Comment: [place] teeth - Social History Smoking Status: Never smoker Alcohol Intake: never Alcohol Intake Frequency:: other Substance Use Type: denies use Occupational Status: other Housing: house Household Members: family Family Hx:: Diabetes, Hypertension Comment: Mother/Father-HTN ROS Obtained: Yes All systems reviewed & no additional complaints - Constitutional Constitutional: Reports as per HPI - Eyes Eyes: Denies eye discharge - ENT Ears, Nose, Mouth, and Throat: Reports as per HPI - Cardiovascular Cardiovascular: Denies chest pain - Respiratory Respiratory: D
[2022-03-22 14:45] VITALS: BP 129/86; PULSE 92; RESP 19; TEMP 36.6
== END 2022-03-22 14:46 | disposition home or self-care (01) ==
PROVIDERS: Emergency Provider Nurse Practitioner Family; PCP Nurse Practitioner Family
DX: J01.90 Acute sinusitis, unspecified (principal); K21.9 Gastro-esophageal reflux disease without esophagitis; K31.84 Gastroparesis; R11.2 Nausea with vomiting, unspecified; I10 Essential (primary) hypertension; Z79.899 Other long term (current) drug therapy; Z88.0 Allergy status to penicillin; Z88.1 Allergy status to other antibiotic agents; Z88.3 Allergy status to other anti-infective agents; Z82.49 Family history of ischemic heart disease and other diseases of the circulatory system; Z83.3 Family history of diabetes mellitus
CPT/HCPCS: 99213; G0463

== ENCOUNTER 2022-06-23 09:20 | Emergency (ER) | payer BC, OTHER, SELFPAY ==
--- NOTE | 2022-06-23 09:39 | EXP.UTC ---
Discharge Plan Disposition Patient Disposition: Home, Self-Care Condition: Good Prescriptions Prescriptions: New amoxicillin [amoxicillin] 875 mg tablet 875 mg PO Q12H Qty: 20 0RF benzonatate [benzonatate] 100 mg capsule 100 mg PO TIDP PRN (Reason: Cough) Qty: 30 0RF methylprednisolone 4 mg Tablets,Dose Pack 4 mg PO DIRECTED Qty: 21 0RF No Action lisinopril 20 mg tablet 20 mg PO BID Qty: 180 0RF Rx Instructions: Take 1 tablet by mouth twice daily famotidine 20 mg tablet 20 mg PO DAILY Qty: 30 2RF metoclopramide HCl 10 mg tablet 10 mg PO TIDP PRN (Reason: Dyspepsia) Qty: 30 0RF ondansetron 4 MG tablet,disintegrating 4 mg PO Q8HP PRN (Reason: Nausea) Qty: 20 0RF Referrals Follow up/Referrals: Astrid Pro APRN [Primary Care Provider] - See instructions Activity Restrictions/Add. Instructions Additional Instructions/Restrictions: Drink plenty of fluids. Take tylenol or ibuprofen for pain or fever. Take the medications as directed. Follow up with your regular doctor. GO TO THE ER FOR ANY WORSENING SYMPTOMS Quarantine until you know the results of your covid-19 test. Notify your school or workplace of your results and follow their instructions regarding return to work/school. Clinical Impressions Clinical Impression: Bronchitis, Acute viral syndrome, Close exposure to COVID-19 virus Stand Alone Forms Stand Alone Forms: Work/School Release Instructions Patient Instructions: DI for Acute Bronchitis, Coronavirus Disease 2019, Preventing the Spread of Coronavirus Discharge Instructions Discharge ED Provider: Rayo Soriano [facility] General Stated complaint: sinus congestion Time Seen by Provider: 06/23/22 09:39 History of Present Illness Provider Complaint: He states that for the past 2 days he has had chest congestion and sinus congestion. He has had body aches and low grade fever also. Related Data Previous Rx's Medication Instructions Recorded ondansetron 4 mg disintegrating 4 mg PO Q8HP PRN Nausea #20 tabs 03/22/22 tablet famotidine 20 mg tablet 20 mg PO DAILY #30 tabs 04/16/22 lisinopril 20 mg tablet 20 mg PO BID Hypertension #180 tabs 04/16/22 metoclopramide HCl 10 mg tablet 10 mg PO TIDP PRN Dyspepsia #30 04/16/22 tabs amoxicillin 875 mg tablet 875 mg PO Q12H #20 tabs 06/23/22 benzonatate 100 mg capsule 100 mg PO TIDP PRN Cough #30 caps 06/23/22 methylprednisolone 4 mg tablets in 4 mg PO DIRECTED #21 tabs 06/23/22 a dose pack Allergies Allergy/AdvReac Type Severity Reaction Status Date / Time azithromycin [AZITHROMYCIN] Allergy Mild Verified 06/23/22 09:58 PFSH PFS Social History Smoking Status: Never smoker alcohol intake: never substance use type: denies use current occupational status: other Travel in the last 8 weeks: None household members: family housing: house caffeine: Yes ROS Obtained: Yes All systems reviewed & no additional complaints except as documented Constitutional Constitutional: Reports chills and Reports fever(s) Eyes Eyes: Denies eye discharge ENT Ears, Nose, Mouth, and Throat: Reports as per HPI Cardiovascular Cardiovascular: Denies chest pain Respiratory Respiratory: Denies chest congestion and Reports cough Gastrointestinal Gastrointestingal: Reports nausea; Denies abdominal pain, constipation, cramping, diarrhea or vomiting Musculoskeletal Musculoskeletal: Denies arthralgias Integumentary/Breasts Skin/Breast: Denies rash Neurologic Neurologic: Denies paresthesias Physical Exam General General appearance: alert and in no apparent distress Head Head exam: atraumatic, normocephalic and normal inspection Eye Eye exam: Present normal appearance, PERRL and EOMI ENT ENT exam: Present mucous membranes moist and normal external ear exam Expanded ENT Exam TM/Canal exam: Bilateral TM: erythema and bulging Nose
[2022-06-23 09:54] VITALS: BP 122/86; PULSE 81; RESP 16; TEMP 37; O2SAT 98; BMI 35.1
[2022-06-23 10:58] VITALS: BP 122/86; PULSE 81; RESP 16; TEMP 37
[2022-06-23 11:38] LABS: Adenovirus,PCR Not Detected (NotDetected); Bordetella Pertussis Not Detected (NotDetected); Chlamydophila Pneumoniae, PCR Not Detected (NotDetected); Coronavirus 19, PCR Not Detected (NotDetected); Coronavirus 229E Not Detected (NotDetected); Coronavirus NL63 Not Detected (NotDetected); Coronavirus OC43 Not Detected (NotDetected); Coronovirus HKU1,PCR Not Detected (NotDetected); Human Metapneumovirus Not Detected (NotDetected); Influenza A, PCR Not Detected (NotDetected); Influenza AH1, 2009 Not Detected (NotDetected); Influenza AH1, PCR Not Detected (NotDetected); Influenza AH3,PCR Not Detected (NotDetected); Influenza B, PCR Not Detected (NotDetected); Mycoplasma Pneumoniae, PCR Not Detected (NotDetected); Parainfluenza 1, PCR Not Detected (NotDetected); Parainfluenza 2, PCR Not Detected (NotDetected); Parainfluenza 3, PCR Not Detected (NotDetected); Parainfluenza 4, PCR Not Detected (NotDetected); Respiratory Syncytial Virus Not Detected (NotDetected); Rhinovirus/Enterovirus Not Detected (NotDetected)
== END 2022-06-23 10:59 | disposition home or self-care (01) ==
PROVIDERS: Emergency Provider Nurse Practitioner Family; PCP Nurse Practitioner Family
DX: B34.9 Viral infection, unspecified (principal); J20.9 Acute bronchitis, unspecified; Z20.822 Contact with and (suspected) exposure to COVID-19
CPT/HCPCS: 87581; 87632; 87798; 99212; C9803; G0463; U0003; U0005

== ENCOUNTER 2022-11-20 09:53 | Emergency (ER) | payer BC, OTHER, SELFPAY ==
[2022-11-20 10:30] VITALS: BP 114/83; PULSE 72; RESP 20; TEMP 36.6; O2SAT 97; BMI 34.5
--- NOTE | 2022-11-20 10:35 | EXP.UTC ---
Discharge Plan Disposition Patient Disposition: Home, Self-Care Condition: Good Prescriptions Prescriptions: New ondansetron 4 mg Tablet,Disintegrating 4 mg PO Q8H PRN (Reason: Nausea) Qty: 9 0RF amoxicillin [amoxicillin] 500 mg tablet 500 mg PO TID 10 Days Qty: 30 0RF votpjugsazdxbjt-[id number] [Bromfed DM] 2-30-10 mg/5 mL Syrup 5 ml PO Q6H PRN (Reason: Cough) Qty: 240 0RF No Action lisinopril 20 mg tablet 20 mg PO BID Qty: 180 0RF Rx Instructions: Take 1 tablet by mouth twice daily Referrals Follow up/Referrals: Astrid Pro APRN [Primary Care Provider] - See instructions Activity Restrictions/Add. Instructions Additional Instructions/Restrictions: Drink plenty of fluids. Take tylenol or ibuprofen for pain or fever. Take the medications as directed. Follow up with your regular doctor. GO TO THE ER FOR ANY WORSENING SYMPTOMS Clinical Impressions Clinical Impression: Acute viral syndrome, Pharyngitis Stand Alone Forms Stand Alone Forms: Work/School Release Instructions Patient Instructions: DI for Pharyngitis/Tonsillopharyngitis -- Adult, DI for Viral Syndrome Discharge ED Provider: Rayo Soriano [facility] General Stated complaint: cough,sore throat,congestion Time Seen by Provider: 11/20/22 10:35 History of Present Illness Provider Complaint: He states that for the past 3 days he has had cough, chest congestion, chills, and malaise. Related Data Previous Rx's Medication Instructions Recorded lisinopril 20 mg tablet 20 mg PO BID Hypertension #180 tabs 09/30/22 amoxicillin 500 mg tablet 500 mg PO TID 10 days #30 tabs 11/20/22 ylxzapygjknncud-bkxudzophzcgipp-RS 5 ml PO Q6H PRN Cough #240 mL 11/20/22 2 mg-30 mg-10 mg/5 mL oral syrup (Bromfed DM) ondansetron 4 mg disintegrating 4 mg PO Q8H PRN Nausea #9 tabs 11/20/22 tablet Allergies Allergy/AdvReac Type Severity Reaction Status Date / Time azithromycin [AZITHROMYCIN] Allergy Mild Verified 11/20/22 10:40 [facility] Disclaimer: The information contained in this section may have been updated after the patient was seen, as this information can be updated by other users. Social History Smoking Status: Never smoker alcohol intake: never substance use type: denies use current occupational status: other Travel in the last 8 weeks: None household members: family housing: house caffeine: Yes ROS Obtained: Yes All systems reviewed & no additional complaints except as documented Constitutional Constitutional: Reports chills and Reports fever(s) Eyes Eyes: Denies eye discharge ENT Ears, Nose, Mouth, and Throat: Reports as per HPI Cardiovascular Cardiovascular: Denies chest pain Respiratory Respiratory: Denies chest congestion and Reports cough Gastrointestinal Gastrointestingal: Reports nausea; Denies abdominal pain, constipation, cramping, diarrhea or vomiting Musculoskeletal Musculoskeletal: Denies arthralgias Integumentary/Breasts Skin/Breast: Denies rash Neurologic Neurologic: Denies paresthesias Physical Exam General General appearance: alert and in no apparent distress Head Head exam: atraumatic, normocephalic and normal inspection Eye Eye exam: Present normal appearance, PERRL and EOMI ENT ENT exam: Present mucous membranes moist and normal external ear exam Expanded ENT Exam TM/Canal exam: Bilateral TM: erythema and bulging Nose exam: Absent sinus tenderness Mouth exam: Present normal external inspection; Absent drooling Teeth exam: Present normal inspection Throat exam: Present tonsillar erythema, tonsillomegaly and tonsillar exudate Neck Neck exam: Present normal inspection, full ROM and trachea midline; Absent tenderness, meningismus or lymphadenopathy Chest Chest inspection: Present normal inspection and symmetric chest wall rise; Absent tenderness Respiratory Respiratory exam: Present normal lung soun
[2022-11-20 10:46] LABS: UTC Strep Screen (Rapid) Negative (Negative)
[2022-11-20 12:02] VITALS: BP 114/83; PULSE 72; RESP 20; TEMP 36.6; O2SAT 97
== END 2022-11-20 12:02 | disposition home or self-care (01) ==
PROVIDERS: Emergency Provider Nurse Practitioner Family; PCP Nurse Practitioner Family
DX: J02.9 Acute pharyngitis, unspecified (principal); B34.9 Viral infection, unspecified
CPT/HCPCS: 87880; 99212; 99213; C9803; G0463; U0003; U0005

== ENCOUNTER 2023-05-29 15:01 | Emergency (ER) | payer BC, OTHER, SELFPAY ==
[2023-05-29 15:50] VITALS: BP 147/98; PULSE 83; RESP 18; TEMP 36.7; O2SAT 98; BMI 35.9
--- NOTE | 2023-05-29 16:20 | EXP.UTC ---
Discharge Plan Disposition Patient Disposition: Home, Self-Care Condition: Good Prescriptions Prescriptions: New amoxicillin-pot clavulanate 875-125 mg Tablet 1 tab PO Q12H Qty: 20 0RF fluticasone propionate [Flonase Allergy Relief] 50 mcg/actuation spray,suspension 1 - 2 spray intranasal DAILY Qty: 16 0RF Rx Instructions: administer into each nostril daily prednisone [prednisone] 20 mg tablet 20 mg PO BID 5 Days Qty: 10 0RF No Action lisinopril 20 mg tablet 20 mg PO BID Qty: 180 0RF Rx Instructions: Take 1 tablet by mouth twice daily Referrals Follow up/Referrals: Astrid Pro APRN [Primary Care Provider] - See instructions Activity Restrictions/Add. Instructions Additional Instructions/Restrictions: *Monitor Temp, Over the counter Motrin or Tylenol as directed/as needed Tylenol every 4 hours and Motrin every 6 hours (as long as your family doctor has told you that you can take it) for fever or pain. and straight to ER if unable to lower temp less than 101.0 after medication given Take medication as prescribed Follow up with your Family Doctor if no improvement or any worsening of symptoms Return if needed Straight to ER if any life threatening symptoms You were tested for today for Upper Respiratory Panel with COVID19 your test result should be back in the next 24hrs You may check your results on the [facility] Clinical Impressions Clinical Impression: Sinusitis Qualifiers: Sinusitis location: unspecified location Chronicity: unspecified Qualified Code(s): J32.9 - Chronic sinusitis, unspecified Stand Alone Forms Stand Alone Forms: Work/School Release Instructions Patient Instructions: Sinusitis, DI for Sinusitis Discharge ED Provider: Sosa oFfana [facility] [place] HPI General Stated complaint: sinus pressure, cough, congestion, body aches Mode of Arrival: Ambulatory Source of Information: Patient Limitations: No Limitations Time Seen by Provider: 05/29/23 16:20 Description of Symptoms (Recalled from Triage Doc. by RN): PATIENT C/O LIGHT-HEADED, SINUS PRESSURE AND BODY ACHES X 1 WEEK HEENT Symptoms (Recalled from RN notes): Yes Resp Symptoms (Recalled from RN notes): No Skin Symptoms (Recalled from RN notes): No MS Symptoms (Recalled from RN notes): No Functional Status (Recalled from RN notes): WNL History of Present Illness Provider Complaint: Patient states that he has been having sinus pain and pressure for over a week States that today he has had a sinus headache and it is not getting any better and was dizzy earlier but that has got better States that he feels like he may have a sinus infection and allso wanted to get checked for COVID to make sure he doesnt have it Related Data Previous Rx's Medication Instructions Recorded lisinopril 20 mg tablet 20 mg PO BID Hypertension #180 tabs 09/30/22 amoxicillin 875 mg-potassium 1 tab PO Q12H #20 tabs 05/29/23 clavulanate 125 mg tablet fluticasone propionate 50 1 - 2 spray intranasal DAILY #16 05/29/23 mcg/actuation nasal grams spray,suspension (Flonase Allergy Relief) prednisone 20 mg tablet 20 mg PO BID 5 days #10 tabs 05/29/23 Allergies Allergy/AdvReac Type Severity Reaction Status Date / Time azithromycin [AZITHROMYCIN] Allergy Mild Verified 12/23/22 09:18 Worker's Comp Is this a Worker's Comp case?: No [facility] Disclaimer: The information contained in this section may have been updated after the patient was seen, as this information can be updated by other users. Social History Smoking Status: Never smoker alcohol intake: never substance use type: denies use current occupational status: other Travel in the last 8 weeks: None household members: family housing: house caffeine: Yes ROS Obtained: Yes All systems reviewed & no additional complaints except as documented and Yes Systems reviewed as appropriate & no additio
[2023-05-29 16:33] VITALS: BP 147/98; PULSE 83; RESP 18; TEMP 36.7; O2SAT 98
== END 2023-05-29 16:39 | disposition home or self-care (01) ==
PROVIDERS: Emergency Provider Nurse Practitioner; PCP Nurse Practitioner Family
DX: J01.90 Acute sinusitis, unspecified (principal); R42 Dizziness and giddiness
CPT/HCPCS: 99212; 99214; G0463

== ENCOUNTER 2023-07-02 08:52 | Emergency (ER) | payer BC, OTHER, SELFPAY ==
[2023-07-02 08:53] VITALS: BP 137/82; PULSE 125; RESP 22; TEMP 39.3; O2SAT 97; BMI 36.9
[2023-07-02 08:57] VITALS: BP 137/82; PULSE 110; O2SAT 96
--- NOTE | 2023-07-02 08:59 | PC.NURSE ---
Dr. Martinez at [facility] for pt eval
[2023-07-02 09:00] VITALS: BP 143/86; PULSE 119; O2SAT 97
--- NOTE | 2023-07-02 09:04 | XR_ITS ---
PROCEDURE INFORMATION: Exam: XR Chest Exam date and time: 07/02/2023 9:07 AM Age: 28 years old Clinical indication: Cough; Additional info: 2 weeks cough worsening TECHNIQUE: Imaging protocol: Radiologic exam of the chest. Views: 2 views. COMPARISON: CR XR CHEST 2V 01/02/2021 9:27 AM FINDINGS: Lungs: Unremarkable. No consolidation. Pleural spaces: Unremarkable. No pleural effusion. No pneumothorax. Heart/Mediastinum: Unremarkable. No cardiomegaly. Bones/joints: Unremarkable. IMPRESSION: No acute findings.
--- NOTE | 2023-07-02 09:10 | HMH.EDGENADL ---
Discharge Plan Disposition Patient Disposition: Home, Self-Care Prescriptions Prescriptions: New Paxlovid 300 mg (150 mg x 2)-100 mg tablets,dose pack See Rx Instructions .ROUTE .COMPLEX Qty: 30 0RF Rx Instructions: take TWO 150 mg tablets of nirmatrelvir with ONE 100 mg tablet of ritonavir twice daily for 5 days ondansetron 4 mg tablet,disintegrating 4 mg PO Q6H PRN (Reason: nausea and vomiting) Qty: 10 0RF No Action cetirizine 10 mg Tablet 10 mg PO DAILY PRN (Reason: Allergy Symptoms) lisinopril 20 mg tablet 20 mg PO BID Rx Instructions: Take 1 tablet by mouth twice daily fluticasone propionate [Flonase Allergy Relief] 50 mcg/actuation spray,suspension 1 - 2 spray intranasal DAILY Rx Instructions: administer into each nostril daily Referrals Follow up/Referrals: Astrid Pro APRN [Primary Care Provider] - See instructions Activity Restrictions/Add. Instructions Additional Instructions/Restrictions: Call your family doctor to establish care for this visit to the emergency department and schedule follow-up within 48 hours to ensure improvement. If you have any worsening of your condition or any other concerning signs or symptoms, return to the emergency department or your primary care doctor for further evaluation. Take Paxlovid as prescribed. Take Tylenol 1000 mg every 6 hours (4 times daily) and ibuprofen 400 mg every 6 hours (4 times daily) as needed with food and water to prevent GI upset and kidney damage. Clinical Impressions Clinical Impression: Bronchitis due to COVID-19 virus Discharge ED Provider: Kendell Martinez General Adult HPI General Chief complaint: Fever Stated complaint: vomiting, fever, chills, headache Time Seen by Provider: 07/02/23 08:54 History of Present Illness HPI narrative: This is a 28-year-old male with history of hypertension presenting with multiple complaints. Patient states that he has been having cough and a sinus infection for the past couple of weeks. Over the past 2 or 3 days, patient started developing fevers, body aches and vomiting 1 day prior to arrival. Associated with cough that is productive of green sputum. Vomiting is nonbloody, nonbilious, associated with food intake. No associated diarrhea. Patient started having epigastric abdominal pain that does not radiate. No overlying skin changes, rash, changes in mental status, or any other concerns. Related Data Home Medications Medication Instructions Recorded Confirmed cetirizine 10 mg tablet 10 mg PO DAILY PRN Allergy Symptoms 07/02/23 07/02/23 fluticasone propionate 50 1 - 2 spray intranasal DAILY 07/02/23 07/02/23 mcg/actuation nasal Allergy Symptoms spray,suspension (Flonase Allergy Relief) lisinopril 20 mg tablet 20 mg PO BID High Blood Pressure 07/02/23 07/02/23 Previous Rx's Medication Instructions Recorded nirmatrelvir 300 mg (150 mg See Rx Instructions PO .COMPLEX 07/02/23 x2)-ritonavir 100 mg tablet,dose #30 tabs pack (Paxlovid) ondansetron 4 mg disintegrating 4 mg PO Q6H PRN nausea and 07/02/23 tablet vomiting #10 tabs Allergies Allergy/AdvReac Type Severity Reaction Status Date / Time azithromycin [AZITHROMYCIN] Allergy Mild Verified 12/23/22 09:18 [facility] Disclaimer: The information contained in this section may have been updated after the patient was seen, as this information can be updated by other users. Social History Smoking Status: Current every day smoker alcohol intake: never substance use type: denies use current occupational status: other Travel in the last 8 weeks: None household members: family housing: house caffeine: Yes ROS Obtained: Yes All systems reviewed & no additional complaints except as documented Physical Exam General General appearance: alert, in no apparent distress and other ( ) Head Head exam: atraumatic and normoc
[2023-07-02 09:15] LABS: Influenza A, PCR Not Detected (NotDetected); Influenza B, PCR Not Detected (NotDetected)
--- NOTE | 2023-07-02 09:16 | PC.NURSE ---
pt transported to radiology.
[2023-07-02 09:17] VITALS: BP 143/86; PULSE 122; O2SAT 97
[2023-07-02 09:25] LABS: Basophils % 0.2 % (0.1-2.0); Eosinophils # 0.1 K/mm3 (0.0-0.4); Eosinophils % 0.4 % (0.1-12.0); Hematocrit 46.5 % (42.0-52.0); Hemoglobin 15.7 g/dL (14.1-18.0); Lymphocytes # 1.2 K/mm3 (0.7-4.5); Lymphocytes % 11.8 % (10-50); Mean Corpuscular HGB Conc 33.9 g/dL (31.8-35.4); Mean Corpuscular Hemoglobin 29.1 pg (27.0-31.2); Mean Corpuscular Volume 85.9 fl (80-94); Mean Platelet Volume 8.2 fl (7.4-10.4); Monocytes # 0.7 K/mm3 (0.1-1.0); Monocytes % 6.7 % (1.7-9.3); Neutrophils # 8.5 K/mm3 (1.8-7.8); Neutrophils % 80.8 % (37.0-80.0); Platelet Count 198 K/mm3 (142-424); Red Blood Count 5.41 M/mm3 (4.60-6.20); Red Cell Distribution Width 13.2 % (11.5-17.5); White Blood Count 10.5 K/mm3 (4.8-10.8)
[2023-07-02 09:26] LABS: Chloride 106 mmol/L (98-107); Sodium 139 mmol/L (136-145)
[2023-07-02 09:29] LABS: Alanine Aminotransferase 50 U/L (12-78); Albumin/Globulin Ratio 1.3 (1.1-1.8); Alkaline Phosphatase 94 U/L (38-126); Aspartate Amino Transferase 34 U/L (17-59); Blood Urea Nitrogen 8 mg/dl (9-20); Carbon Dioxide 24 mmol/L (22.0-30.0); Creatinine Clearance Estimated 250 mL/min (50-200); Estimated Glomerular Filt Rate 133 ml/min (>60); GFR (African American) 161 ML/MIN (>60); Globulin 3.2 g/dL (1.3-3.2); Total Protein,Serum 7.2 g/dl (6.3-8.2)
[2023-07-02 09:30] LABS: Calcium 9.7 mg/dl (8.4-10.2); Glucose 109 mg/dl (74-100); Lactic Acid 1.3 mmol/L (0.7-2.1); Lipase 35 U/L (23-300)
[2023-07-02 09:51] LABS: Coronavirus 19, PCR Detected (NotDetected)
[2023-07-02 09:53] LABS: Procalcitonin 0.108 ng/mL (0.0-2.0)
[2023-07-02 09:53] LABS: Strep Scrn Group A (Rapid) Negative (Negative)
[2023-07-02 10:36] VITALS: BP 118/71; PULSE 86; RESP 18; TEMP 37.3; O2SAT 96
== END 2023-07-02 11:20 | disposition home or self-care (01) ==
PROVIDERS: Emergency Provider Emergency Medicine; PCP Nurse Practitioner Family
DX: U07.1 COVID-19 (principal); J40 Bronchitis, not specified as acute or chronic; R51.9 Headache, unspecified; F17.200 Nicotine dependence, unspecified, uncomplicated
CPT/HCPCS: 71046; 80053; 83605; 83690; 84145; 85025; 87040; 87430; 87636; 96361; 96374; 96375; 99285; J0131; J2405

== ENCOUNTER 2024-04-14 09:49 | Emergency (ER) | payer BC, OTHER, SELFPAY ==
[2024-04-14 09:50] VITALS: BP 113/83; PULSE 85; RESP 18; TEMP 36.9; O2SAT 100; BMI 33.6
--- NOTE | 2024-04-14 10:28 | EXP.UTC ---
Discharge Plan Disposition Patient Disposition: Home, Self-Care Condition: Good Prescriptions Prescriptions: New dicyclomine 20 mg tablet 20 mg PO QID PRN (Reason: abdominal pain) Qty: 40 0RF No Action amoxicillin 500 mg tablet 500 mg PO BID 10 Days Qty: 20 0RF fluticasone propionate [Flonase Allergy Relief] 50 mcg/actuation spray,suspension 1 spray intranasal DAILY PRN (Reason: allergy symptoms) Qty: 16 0RF Rx Instructions: administer into each nostril methylprednisolone [Medrol (Pablito)] 4 mg tablets,dose pack See Rx Instructions PO PER PKG DIR Qty: 21 0RF Rx Instructions: PO PER PKG DIR lisinopril 20 mg tablet 20 mg PO BID Rx Instructions: Take 1 tablet by mouth twice daily Referrals Follow up/Referrals: Astrid Pro APRN [Primary Care Provider] - See instructions Activity Restrictions/Add. Instructions Additional Instructions/Restrictions: Take medication as prescribed. If no better by Tuesday, follow up with primary care provider. Clinical Impressions Clinical Impression: Diarrhea in adult patient Instructions Patient Instructions: DI for Diarrhea and Traveler's Diarrhea -- Adult, DI for Abdominal Pain-Adult Discharge ED Provider: Pari Gunn [facility] General Stated complaint: abd pain, diarrhea Mode of Arrival: Ambulatory Source of Information: Patient Limitations: No Limitations Time Seen by Provider: 04/14/24 10:28 Description of Symptoms (Recalled from Triage Doc. by RN): ABDOMINAL PAIN AND DIARRHEA X 3 DAYS HEENT Symptoms (Recalled from RN notes): No Resp Symptoms (Recalled from RN notes): No Skin Symptoms (Recalled from RN notes): No MS Symptoms (Recalled from RN notes): No Functional Status (Recalled from RN notes): NA History of Present Illness Provider Complaint: Pt reports that he has had loose stool and abdominal cramping since Tuesday or Tuesday. He reports that he typically has a BM 2-3 times a day and has continued to do so but with loose stool. He states that he took some Gax-x but this did not help. Related Data Home Medications Medication Instructions Recorded Confirmed lisinopril 20 mg tablet 20 mg PO BID High Blood Pressure 07/02/23 03/08/24 Previous Rx's Medication Instructions Recorded amoxicillin 500 mg tablet 500 mg PO BID 10 days #20 tabs 05/16/24 fluticasone propionate 50 1 spray intranasal DAILY PRN 03/08/24 mcg/actuation nasal allergy symptoms #16 grams spray,suspension (Flonase Allergy Relief) methylprednisolone 4 mg tablets in See Rx Instructions PO PER PKG DIR 03/08/24 a dose pack (Medrol (Pablito)) #21 tabs dicyclomine 20 mg tablet 20 mg PO QID PRN abdominal pain 04/14/24 #40 tabs Allergies Allergy/AdvReac Type Severity Reaction Status Date / Time azithromycin [AZITHROMYCIN] Allergy Mild Verified 03/08/24 10:35 Worker's Comp Is this a Worker's Comp case?: No [facility] Disclaimer: The information contained in this section may have been updated after the patient was seen, as this information can be updated by other users. Medical History (Updated 04/14/24 @ 10:48 by Pari Gunn APRN) Pharyngitis Bronchitis due to COVID-19 virus Social History Smoking Status: Current every day smoker alcohol intake: never substance use type: denies use current occupational status: other Travel in the last 8 weeks: None household members: family housing: house caffeine: Yes ROS Obtained: Yes All systems reviewed & no additional complaints except as documented Constitutional Constitutional: Reports system reviewed and no additional complaints, except as documented Eyes Eyes: Reports system reviewed and no additional complaints, except as documented ENT Ears, Nose, Mouth, and Throat: Reports system reviewed and no additional complaints, except as documented Cardiovascular Cardiovascular: Reports system reviewed and no additional complaints, except as documented Respiratory Respiratory: Reports system reviewed and no additional complaints, except as documented Gastrointestinal Gastrointestingal: Reports system reviewed and no additional complaints, except as documented, abdominal pain and loose stools Genitourinary Male Genitourinary: Reports system reviewed and no additional complaints, except as documented Musculoskeletal Musculoskeletal: Reports system reviewed and no additional complaints, except as documented Integumentary/Breasts Skin/Breast: Reports system reviewed and no additional complaints, except as documented Neurologic Neurologic: Reports system reviewed and no additional complaints, except as documented Endocrine Endocrine: Reports system reviewed and no additional complaints, except as documented Hematologic/Lymphatic Henatologic/Lymphatic: Reports system reviewed and no additional complaints, except as documented Allergic/Immunologic Allergic/Immunologic: Reports system reviewed and no additional complaints, except as documented Physical Exam General General appearance: alert and in no apparent distress Head Head exam: atraumatic and normocephalic Eye Eye exam: Present normal appearance ENT ENT exam: Present normal exam and normal oropharynx Neck Neck exam: Present normal inspection; Absent lymphadenopathy Chest Chest inspection: Present normal inspection and symmetric chest wall rise Respiratory Respiratory exam: Present normal lung sounds bilaterally Cardiovascular Cardiovascular exam: Present regular rate, normal rhythm and normal heart sounds Abdominal Exam Abdominal exam: Present soft, tenderness and normal bowel sounds; Absent organomegaly, heel tap sign or tenderness at [place]Bur[place]'s Point Abdominal tenderness: Present diffuse and mild Extremities Exam Extremities exam: Present normal inspection Back Exam Back exam: Present normal inspection Neurological Exam Neurological exam: Present alert and oriented X3 Psychiatric Psychiatric exam: Present normal affect and normal mood Skin Skin exam: Present warm, dry and intact Lymphatic Lymphatic Findings: no adenopathy Medical Decision Making Carter Inquiry Pt receiving controlled substance: No Carter was queried for this patient: No Vital Signs: 04/14/24 09:50 Temperature 98.4 F Temperature Source Oral Pulse Rate [Radial] 85 Respiratory Rate 18 Blood Pressure [Right Arm] 113/83 Blood Pressure Mean [Right Arm] 93 Blood Pressure Source [Right Arm] Automatic Cuff Blood Pressure Position [Right Arm] Sitting 02 Sat by Pulse Oximetry 100 Oxygen Delivery Method Room Air
[2024-04-14 10:54] VITALS: BP 113/83; PULSE 85; RESP 18; TEMP 36.9; O2SAT 100
== END 2024-04-14 10:55 | disposition home or self-care (01) ==
PROVIDERS: Emergency Provider Nurse Practitioner Family; PCP Nurse Practitioner Family
DX: R10.817 Generalized abdominal tenderness (principal); R19.7 Diarrhea, unspecified
CPT/HCPCS: 99212; 99214; G0463

== ENCOUNTER 2024-09-21 12:58 | Emergency (ER) | payer BC, OTHER, SELFPAY ==
[2024-09-21 14:44] VITALS: BP 152/100; PULSE 94; RESP 20; TEMP 36.8; O2SAT 98; BMI 34.8
--- NOTE | 2024-09-21 14:51 | ED_ITS ---
Discharge Plan Disposition Patient Disposition: Home, Self-Care Condition: Good Prescriptions Prescriptions: New prednisone 20 mg tablet 20 mg PO BID 4 Days Qty: 8 0RF benzonatate 100 mg capsule 100 mg PO TIDP PRN (Reason: Cough) Qty: 30 0RF amoxicillin 500 mg tablet 500 mg PO TID 10 Days Qty: 30 0RF No Action lisinopril 20 mg tablet 20 mg PO BID Rx Instructions: Take 1 tablet by mouth twice daily Referrals Follow up/Referrals: Astrid Pro APRN [Primary Care Provider] - See instructions Activity Restrictions/Add. Instructions Additional Instructions/Restrictions: Drink plenty of fluids. Take tylenol or ibuprofen for pain or fever. Take the medications as directed. Follow up with your regular doctor. GO TO THE ER FOR ANY WORSENING SYMPTOMS Clinical Impressions Clinical Impression: Bronchitis, Acute viral syndrome Instructions Patient Instructions: DI for Acute Bronchitis Print Language Print Language: Ug[place]an Discharge ED Provider: Rayo Soriano [facility] General Stated complaint: sinus press and conges, S/T, B/A, H/A, weak, cough Mode of Arrival: Ambulatory Source of Information: Patient Time Seen by Provider: 09/21/24 14:51 Description of Symptoms (Recalled from Triage Doc. by RN): SORE THROAT, SAMUELS, SINUS PRESSURE/PAIN HEENT Symptoms (Recalled from RN notes): Yes Resp Symptoms (Recalled from RN notes): No Skin Symptoms (Recalled from RN notes): No MS Symptoms (Recalled from RN notes): No Functional Status (Recalled from RN notes): WNL Related Data Home Medications ?Medication ?Instructions ?Recorded ?Confirmed lisinopril 20 mg tablet 20 mg PO BID High Blood Pressure 07/02/23 09/21/24 Previous Rx's ?Medication ?Instructions ?Recorded amoxicillin 500 mg tablet 500 mg PO TID 10 days #30 tabs 09/21/24 benzonatate 100 mg capsule 100 mg PO TIDP PRN Cough #30 caps 09/21/24 prednisone 20 mg tablet 20 mg PO BID 4 days #8 tabs 09/21/24 Allergies Allergy/AdvReac Type Severity Reaction Status Date / Time azithromycin (AZITHROMYCIN) Allergy Mild Verified 03/08/24 10:35 Worker's Comp Is this a Worker's Comp case?: No [facility] Disclaimer: The information contained in this section may have been updated after the patient was seen, as this information can be updated by other users. Medical History (Updated 09/21/24 @ 15:14 by Rayo Soriano APRN) Pharyngitis Bronchitis due to COVID-19 virus Social History Smoking Status: Current every day smoker alcohol intake: never substance use type: denies use current occupational status: other household members: family housing: house caffeine: Yes ROS Obtained: Yes All systems reviewed & no additional complaints except as documented Constitutional Constitutional: Reports poor appetite Eyes Eyes: Reports system reviewed and no additional complaints, except as documented ENT Ears, Nose, Mouth, and Throat: Reports as per HPI Cardiovascular Cardiovascular: Reports system reviewed and no additional complaints, except as documented and Denies chest pain Respiratory Respiratory: Denies shortness of breath, Reports chest congestion, Reports cough, Denies stridor and Denies wheezing Gastrointestinal Gastrointestingal: Reports system reviewed and no additional complaints, except as documented; Denies abdominal pain, diarrhea or vomiting Musculoskeletal Musculoskeletal: Reports system reviewed and no additional complaints, except as documented and Denies arthralgias Integumentary/Breasts Skin/Breast: Reports system reviewed and no additional complaints, except as documented and Denies rash Neurologic Neurologic: Denies paresthesias Allergic/Immunologic Allergic/Immunologic: Denies wheezing Physical Exam General General appearance: alert and in no apparent distress Eye Eye exam: Present normal appearance, PERRL and EOMI ENT ENT exam: Present mucous membranes moist and normal external ear exam Expanded ENT Exam External ear exam: Present normal external inspection TM/Canal exam: Bilateral TM: erythema and bulging Nose exam: Absent sinus tenderness Nasal speculum exam: Bilateral: normal Mouth exam: Present normal external inspection; Absent drooling Teeth exam: Present normal inspection Throat exam: Present tonsillar erythema and tonsillomegaly Neck Neck exam: Present normal inspection, full ROM and trachea midline; Absent tenderness, lymphadenopathy or thyromegaly Chest Chest inspection: Present normal inspection and symmetric chest wall rise; Absent tenderness or rash Respiratory Respiratory exam: Present normal lung sounds bilaterally; Absent respiratory distress, wheezes, stridor or accessory muscle use Cardiovascular Cardiovascular exam: Present regular rate, normal rhythm and normal heart sounds Abdominal Exam Abdominal exam: Present soft; Absent distention, tenderness, guarding, rebound or rigidity Extremities Exam Extremities exam: Present normal inspection, full ROM and normal capillary refill; Absent tenderness or calf tenderness Back Exam Back exam: Present normal inspection and full ROM; Absent tenderness Neurological Exam Neurological exam: Present alert and oriented X3 Psychiatric Psychiatric exam: Present normal affect and normal mood Skin Skin exam: Present warm, dry, intact and normal color Lymphatic Lymphatic Findings: no adenopathy Medical Decision Making Medical Records Medical records reviewed: No I reviewed the patient's medical records. Screening: Per USPSTF and CDC recommendations, given the prevalence of disease in our region, it is our hospital?s policy to screen for HIV and viral Hepatitis for all patients aged 18 and over and those with ongoing risk factors. Carter Inquiry Pt receiving controlled substance: No Vital Signs: 09/21/24 14:44 Temperature 98.3 F Temperature Source Oral Pulse Rate [Left Radial] 94 H Respiratory Rate 20 Blood Pressure [Left Arm] 152/100 H Blood Pressure Mean [Left Arm] 117 02 Sat by Pulse Oximetry 98
[2024-09-21 14:58] LABS: UTC Strep Screen (Rapid) Negative (Negative)
[2024-09-21 15:25] LABS: UTC Influenza A Antigen Negative (Negative); UTC Influenza B Antigen Negative (Negative)
[2024-09-21 15:43] VITALS: BP 152/100; PULSE 84; RESP 20; TEMP 36.8
== END 2024-09-21 15:44 | disposition home or self-care (01) ==
PROVIDERS: Emergency Provider Nurse Practitioner Family; PCP Nurse Practitioner Family
DX: J20.9 Acute bronchitis, unspecified (principal); B34.9 Viral infection, unspecified
CPT/HCPCS: 87804; 87880; 99213; G0381

== ENCOUNTER 2024-11-30 15:49 | Emergency (ER) | payer BC, OTHER, SELFPAY ==
[2024-11-30 16:27] VITALS: BP 119/79; PULSE 136; RESP 19; TEMP 37.6; O2SAT 97; BMI 34.0
--- NOTE | 2024-11-30 16:35 | EXP.UTC ---
Discharge Plan Disposition Patient Disposition: Home, Self-Care Condition: Good Prescriptions Prescriptions: New benzonatate 100 mg capsule 100 mg PO TIDP PRN (Reason: Cough) Qty: 30 0RF oseltamivir [Tamiflu] 75 mg capsule 75 mg PO BID 5 Days Qty: 10 0RF ondansetron 4 mg Tablet,Disintegrating 4 mg PO Q8H PRN (Reason: Nausea) Qty: 12 0RF No Action lisinopril 20 mg tablet 20 mg PO BID Rx Instructions: Take 1 tablet by mouth twice daily prednisone 20 mg tablet 20 mg PO BID 4 Days Qty: 8 0RF benzonatate 100 mg capsule 100 mg PO TIDP PRN (Reason: Cough) Qty: 30 0RF amoxicillin 500 mg tablet 500 mg PO TID 10 Days Qty: 30 0RF Referrals Follow up/Referrals: Astrid Pro APRN [Primary Care Provider] - See instructions Activity Restrictions/Add. Instructions Additional Instructions/Restrictions: Drink plenty of fluids. Take tylenol or ibuprofen for pain or fever. Take the medications as directed. Follow up with your regular doctor. GO TO THE ER FOR ANY WORSENING SYMPTOMS Clinical Impressions Clinical Impression: Acute viral syndrome, Exposure to influenza Instructions Patient Instructions: Influenza, DI for Influenza -- Adult, Oseltamivir Print Language Print Language: Luxembourgish Discharge ED Provider: Rayo Soriano [facility] General Stated complaint: weakness, dizzness, cough, and congestion Mode of Arrival: Ambulatory Source of Information: Patient Limitations: No Limitations Time Seen by Provider: 11/30/24 16:13 Description of Symptoms (Recalled from Triage Doc. by RN): States that he feels as if he may have the flu. Light headed and cold. HEENT Symptoms (Recalled from RN notes): Yes Resp Symptoms (Recalled from RN notes): No Skin Symptoms (Recalled from RN notes): No MS Symptoms (Recalled from RN notes): No Functional Status (Recalled from RN notes): wnl Related Data Home Medications ?Medication ?Instructions ?Recorded ?Confirmed lisinopril 20 mg tablet 20 mg PO BID High Blood Pressure 07/02/23 09/21/24 Previous Rx's ?Medication ?Instructions ?Recorded amoxicillin 500 mg tablet 500 mg PO TID 10 days #30 tabs 09/21/24 benzonatate 100 mg capsule 100 mg PO TIDP PRN Cough #30 caps 09/21/24 prednisone 20 mg tablet 20 mg PO BID 4 days #8 tabs 09/21/24 benzonatate 100 mg capsule 100 mg PO TIDP PRN Cough #30 caps 11/30/24 ondansetron 4 mg disintegrating 4 mg PO Q8H PRN Nausea #12 tabs 11/30/24 tablet oseltamivir 75 mg capsule (Tamiflu) 75 mg PO BID 5 days #10 caps 11/30/24 Allergies Allergy/AdvReac Type Severity Reaction Status Date / Time azithromycin (AZITHROMYCIN) Allergy Mild Verified 03/08/24 10:35 Worker's Comp Is this a Worker's Comp case?: No [facility] Disclaimer: The information contained in this section may have been updated after the patient was seen, as this information can be updated by other users. Medical History (Updated 11/30/24 @ 17:10 by Rayo Soriano APRN) Pharyngitis Bronchitis due to COVID-19 virus Social History Smoking Status: Current every day smoker alcohol intake: never substance use type: denies use current occupational status: other Travel in the last 8 weeks: None household members: family housing: house caffeine: Yes Have you lived/traveled outside [place] in past 30 days?: No Contact w/someone who lives/traveled outside [place] past 30 days?: No Exposure to someone with infectious disease in past 14 days?: No Do you have a fever (greater than 100.4 F or 38 C)?: No Have you tested positive for COVID-19: No Exposed to someone with COVID-19 in past 14 days?: No Do you have a sore throat?: No Do you have a cough?: No Do you have any weakness?: No Do you have any diarrhea?: No Are you experiencing any unusual bleeding?: No Do you have any muscle aches/pain?: No Do you have any abdominal pain?: No Are you experiencing loss of taste or smell?: No ROS Obtained: Yes All systems reviewed & no additional complaints except as documented Constitutional Constitutional: Reports chills and Reports fever(s) Eyes Eyes: Denies eye discharge ENT Ears, Nose, Mouth, and Throat: Reports as per HPI Cardiovascular Cardiovascular: Denies chest pain Respiratory Respiratory: Denies chest congestion and Reports cough Gastrointestinal Gastrointestingal: Reports nausea; Denies abdominal pain, constipation, cramping, diarrhea or vomiting Musculoskeletal Musculoskeletal: Denies arthralgias Integumentary/Breasts Skin/Breast: Denies rash Neurologic Neurologic: Denies paresthesias Physical Exam General General appearance: alert and in no apparent distress Head Head exam: atraumatic, normocephalic and normal inspection Eye Eye exam: Present normal appearance, PERRL and EOMI ENT ENT exam: Present normal exam, normal oropharynx, mucous membranes moist, TM's normal bilaterally and normal external ear exam Neck Neck exam: Present normal inspection, full ROM and trachea midline; Absent meningismus or lymphadenopathy Chest Chest inspection: Present normal inspection and symmetric chest wall rise; Absent tenderness Respiratory Respiratory exam: Present normal lung sounds bilaterally; Absent respiratory distress Cardiovascular Cardiovascular exam: Present regular rate and normal rhythm; Absent JVD Abdominal Exam Abdominal exam: Present soft and normal bowel sounds; Absent distention, tenderness or guarding Extremities Exam Extremities exam: Present normal inspection, full ROM and normal capillary refill; Absent calf tenderness Back Exam Back exam: Present normal inspection; Absent tenderness Neurological Exam Neurological exam: Present alert and oriented X3 Psychiatric Psychiatric exam: Present normal affect and normal mood Skin Skin exam: Present warm, dry, intact and normal color Lymphatic Lymphatic Findings: no adenopathy Medical Decision Making Medical Records Medical records reviewed: No I reviewed the patient's medical records. Screening: Per USPSTF and CDC recommendations, given the prevalence of disease in our region, it is our hospital?s policy to screen for HIV and viral Hepatitis for all patients aged 18 and over and those with ongoing risk factors. Carter Inquiry Pt receiving controlled substance: No Vital Signs: 11/30/24 16:27 Temperature 99.7 F H Temperature Source Oral Pulse Rate [Radial] 136 H Respiratory Rate 19 Blood Pressure [Right Arm] 119/79 Blood Pressure Mean [Right Arm] 92 Blood Pressure Source [Right Arm] Automatic Cuff Blood Pressure Position [Right Arm] Sitting 02 Sat by Pulse Oximetry 97 Oxygen Delivery Method Room Air Lab Data Lab results reviewed: Yes I reviewed the patient's lab results.
[2024-11-30 16:52] LABS: UTC Influenza A Antigen Negative (Negative); UTC Influenza B Antigen Negative (Negative)
[2024-11-30 17:24] VITALS: BP 119/79; PULSE 136; RESP 19; TEMP 37.6; O2SAT 97
[2024-11-30 17:32] LABS: Coronavirus 19, PCR Not Detected (NotDetected); Influenza B, PCR Not Detected (NotDetected)
[2024-11-30 17:58] LABS: Influenza A, PCR Detected (NotDetected)
== END 2024-11-30 17:25 | disposition home or self-care (01) ==
PROVIDERS: Emergency Provider Nurse Practitioner Family; PCP Nurse Practitioner Family
DX: B34.9 Viral infection, unspecified (principal); Z20.828 Contact with and (suspected) exposure to other viral communicable diseases
CPT/HCPCS: 87636; 87804; 99212; G0381

== ENCOUNTER 2025-08-03 10:12 | Outpatient (CLI) | payer BC, OTHER, SELFPAY ==
[2025-08-03 22:20] LABS: Coronavirus 19, PCR Not Detected (NotDetected); Influenza A, PCR Not Detected (NotDetected); Influenza B, PCR Not Detected (NotDetected)
== END 2025-08-03 23:59 ==
LOC: LAB.DROPOF 08-05 10:14
PROVIDERS: PCP Nurse Practitioner Family; Visit Provider Nurse Practitioner Family
DX: J06.9 Acute upper respiratory infection, unspecified (principal)
CPT/HCPCS: 87631